=== PATIENT | female | born 1955 | race Hispanic/Latino ===

== ENCOUNTER 2021-04-17 14:57 | Inpatient (IN) | payer MEDICARE ==
[~2021-04-17] VITALS: Ht 152.4 cm; Wt 78.0 kg
[2021-04-17] MEDS ORDERED: METHYLPREDNISOLONE SOD SUCC 125 MG/2ML VIAL IV ONE (15:30)
[2021-04-17] MEDS ORDERED: ALBUTEROL/IPRATROPIUM 3 ML NEB NEB ONE (15:30)
[2021-04-17 15:55] LABS: BASOPHILS # (AUTO) 0.1 (0.0-0.1); BASOPHILS % 0.6 % (0.0-1.0); EOSINOPHILS # (AUTO) 0.2 (0.0-0.4); EOSINOPHILS % 2.4 % (0.0-6.0); HEMATOCRIT 31.1 % (34.2-44.1); HEMOGLOBIN 10.5 g/dL (12.0-16.0); LYMPHOCYTES # (AUTO) 1.4 (1.0-3.2); LYMPHOCYTES % 14.6 % (18.0-39.1); MEAN CORPUSCULAR HEMOGLOBIN 29.2 pg (28-32); MEAN CORPUSCULAR HGB CONC 33.8 g/dL (31-35); MEAN CORPUSCULAR VOLUME 86.4 fL (81-99); NEUTROPHILS # (AUTO) 7.1 (2.1-6.9); NEUTROPHILS % 71.8 % (38.7-80.0); PLATELET COUNT 348 x10e3/uL (140-360); RED CELL DISTRIBUTION WIDTH 15.4 % (11.7-14.4)
[2021-04-17 16:08] LABS: ALANINE AMINOTRANSFERASE 17 IU/L (0-55); ALBUMIN 3.5 g/dL (3.5-5.0); ALBUMIN/GLOBULIN RATIO 0.7 (0.8-2.0); ALKALINE PHOSPHATASE 82 IU/L (40-150); ANION GAP 15.8 mmol/L (8-16); BLOOD UREA NITROGEN 14 mg/dL (7-26); BUN/CREATININE RATIO 17 (6-25); CALCIUM 9.6 mg/dL (8.4-10.2); CARBON DIOXIDE 26 mmol/L (22-29); CHLORIDE 91 mmol/L (98-107); CREATINE KINASE 104 IU/L (29-168); CREATININE, SERUM 0.81 mg/dL (0.57-1.11); EST GLOMERULAR FILTRATION RATE > 60 ML/MIN (60-); GLUCOSE 106 mg/dL (74-118); POTASSIUM 3.8 mmol/L (3.5-5.1); SODIUM 129 mmol/L (136-145)
[2021-04-17] MEDS ORDERED: ASPIRIN 81 MG CHEW TAB PO ONE (17:00)
[2021-04-17 18:16] VITALS: BP 108/65
[2021-04-17 19:27] VITALS: BP 108/65
[2021-04-17] MEDS ORDERED: CLOPIDOGREL75 MG (19:56)
[2021-04-17] MEDS ORDERED: MONTELUKAST SOD10 MG (19:56)
[2021-04-17] MEDS ORDERED: ROSUVASTATIN CA20 MG (19:56)
[2021-04-17] MEDS ORDERED: ISORDIL40 MG PO (19:56)
[2021-04-17] MEDS ORDERED: ATENOLOL25 MG (19:56)
[2021-04-17] MEDS ORDERED: ASPIRIN81 MG PO (20:00)
[2021-04-17] MEDS ORDERED: NEXIUM20 MG PO (20:00)
[2021-04-17] MEDS ORDERED: TRIAMTERENE-HCTZ1 EA PO (20:00)
[2021-04-17 20:30] VITALS: BP 120/73
[2021-04-17 20:51] VITALS: BP 120/73
[2021-04-17] MEDS ORDERED: ALBUTEROL SULF 0.083% NEB SOLN 3 ML NEB NEB PRN (21:45)
[2021-04-17] MEDS: GUAIFENESIN/CODEINE 10 ML CUP PO PRN (22:18)
[2021-04-18] VITALS (9 sets, daily range): BP systolic 138–149; BP diastolic 58–81
[2021-04-18] MEDS ORDERED: ACETAMINOPHEN 325 MG TAB PO PRN (00:15)
[2021-04-18] MEDS ORDERED: AZITHROMYCIN 500MG/NS 250 ML 250 ML IV ONE (00:15)
[2021-04-18] MEDS ORDERED: ONDANSETRON HCL INJ 2MG/ML 2ML 2 MG/ML VIAL IV PRN (00:15)
[2021-04-18 00:27] LABS: CREATINE KINASE 143 IU/L (29-168)
[2021-04-18] MEDS: CEFTRIAXONE SOD 1 GM in SODIUM CHLORIDE 0.9% 50ML 50 ML IV SCH ×2 (00:46→12:27)
[2021-04-18] MEDS ORDERED: SODIUM CHLORIDE 0.9% 250ML 250 ML ONE (00:51)
[2021-04-18] MEDS: ALBUTEROL/IPRATROPIUM 3 ML NEB NEB SCH ×4 (03:50→20:00)
[2021-04-18 06:08] LABS: BASOPHILS % 0.1 % (0.0-1.0); EOSINOPHILS % 0.1 % (0.0-6.0); HEMATOCRIT 29.7 % (34.2-44.1); HEMOGLOBIN 9.8 g/dL (12.0-16.0); LYMPHOCYTES # (AUTO) 0.8 (1.0-3.2); MEAN CORPUSCULAR HEMOGLOBIN 28.5 pg (28-32); MEAN CORPUSCULAR VOLUME 86.3 fL (81-99); MONOCYTES # (AUTO) 0.3 (0.2-0.8); MONOCYTES % 3.9 % (4.4-11.3); NEUTROPHILS # (AUTO) 6.3 (2.1-6.9); NEUTROPHILS % 84.4 % (38.7-80.0); PLATELET COUNT 310 x10e3/uL (140-360); RED BLOOD COUNT 3.44 x10e6/uL (3.6-5.1); RED CELL DISTRIBUTION WIDTH 15.3 % (11.7-14.4)
[2021-04-18 06:33] LABS: ALANINE AMINOTRANSFERASE 16 IU/L (0-55); ALBUMIN 3.3 g/dL (3.5-5.0); ALBUMIN/GLOBULIN RATIO 0.7 (0.8-2.0); ALKALINE PHOSPHATASE 77 IU/L (40-150); ANION GAP 17.1 mmol/L (8-16); BLOOD UREA NITROGEN 16 mg/dL (7-26); BUN/CREATININE RATIO 21 (6-25); CALCIUM 9.2 mg/dL (8.4-10.2); CARBON DIOXIDE 25 mmol/L (22-29); CHLORIDE 90 mmol/L (98-107); CREATININE, SERUM 0.77 mg/dL (0.57-1.11); EST GLOMERULAR FILTRATION RATE > 60 ML/MIN (60-); GLUCOSE 179 mg/dL (74-118); POTASSIUM 4.1 mmol/L (3.5-5.1); SODIUM 128 mmol/L (136-145)
[2021-04-18 07:22] LABS: CREATINE KINASE MB 7.7 ng/mL (0-5.0)
[2021-04-18] MEDS: PANTOPRAZOLE SOD 40 MG TABEC PO SCH (10:41)
[2021-04-18] MEDS: ASPIRIN 81 MG CHEW TAB PO SCH (10:41)
[2021-04-18] MEDS: CLOPIDOGREL BISULFATE 75 MG TAB PO SCH (10:41)
[2021-04-18] MEDS: METHYLPREDNISOLONE SOD SUCC 40 MG/ML VIAL 1ML IV SCH ×2 (10:41→20:25)
[2021-04-18] MEDS: GUAIFENESIN/CODEINE 10 ML CUP PO PRN (10:45)
[2021-04-18] MEDS ORDERED: BENZONATATE 100 MG CAP PO PRN (14:15)
[2021-04-18 15:03] LABS: CREATINE KINASE 299 IU/L (29-168)
[2021-04-18] MEDS: BENZONATATE 100 MG CAP PO SCH ×2 (15:05→20:25)
[2021-04-18] MEDS: GUAIFENESIN 600 MG TAB PO SCH (16:40)
[2021-04-18] MEDS: MONTELUKAST SODIUM 10 MG TAB PO SCH (20:25)
[2021-04-19] VITALS (9 sets, daily range): BP systolic 111–149; BP diastolic 65–91
[2021-04-19] MEDS: CEFTRIAXONE SOD 1 GM in SODIUM CHLORIDE 0.9% 50ML 50 ML IV SCH ×3 (00:06→23:45)
[2021-04-19] MEDS: AZITHROMYCIN 500MG/NS 250 ML 250 ML IV SCH (00:49)
[2021-04-19] MEDS: ALBUTEROL/IPRATROPIUM 3 ML NEB NEB SCH ×4 (02:05→19:40)
[2021-04-19] MEDS: GUAIFENESIN/CODEINE 10 ML CUP PO PRN (02:20)
[2021-04-19 06:44] LABS: BLOOD UREA NITROGEN 15 mg/dL (7-26); BUN/CREATININE RATIO 19 (6-25); CALCIUM 9.1 mg/dL (8.4-10.2); CARBON DIOXIDE 27 mmol/L (22-29); CHLORIDE 94 mmol/L (98-107); CREATININE, SERUM 0.77 mg/dL (0.57-1.11); EST GLOMERULAR FILTRATION RATE > 60 ML/MIN (60-); GLUCOSE 162 mg/dL (74-118); SODIUM 133 mmol/L (136-145)
[2021-04-19] MEDS: BENZONATATE 100 MG CAP PO SCH ×3 (09:32→21:20)
[2021-04-19] MEDS: GUAIFENESIN 600 MG TAB PO SCH ×2 (09:32→16:39)
[2021-04-19] MEDS: CLOPIDOGREL BISULFATE 75 MG TAB PO SCH (09:32)
[2021-04-19] MEDS: POTASSIUM CHLORIDE 10MEQ EA PO SCH (09:32)
[2021-04-19] MEDS: ISOSORBIDE DINITRATE 20 MG TAB PO SCH (09:32)
[2021-04-19] MEDS: FUROSEMIDE 40 MG TAB PO SCH (09:32)
[2021-04-19] MEDS: ASPIRIN 81 MG CHEW TAB PO SCH (09:32)
[2021-04-19] MEDS: PANTOPRAZOLE SOD 40 MG TABEC PO SCH (09:32)
[2021-04-19] MEDS: METHYLPREDNISOLONE SOD SUCC 40 MG/ML VIAL 1ML IV SCH ×2 (09:32→21:20)
[2021-04-19] MEDS: MONTELUKAST SODIUM 10 MG TAB PO SCH (21:20)
[2021-04-20] VITALS (8 sets, daily range): BP systolic 125–158; BP diastolic 64–91
[2021-04-20] MEDS: GUAIFENESIN/CODEINE 10 ML CUP PO PRN (00:29)
[2021-04-20] MEDS: AZITHROMYCIN 500MG/NS 250 ML 250 ML IV SCH (00:29)
[2021-04-20] MEDS: ALBUTEROL/IPRATROPIUM 3 ML NEB NEB SCH ×4 (00:50→19:22)
[2021-04-20] MEDS: METHYLPREDNISOLONE SOD SUCC 40 MG/ML VIAL 1ML IV SCH ×2 (08:52→21:36)
[2021-04-20] MEDS: CLOPIDOGREL BISULFATE 75 MG TAB PO SCH (08:53)
[2021-04-20] MEDS: BENZONATATE 100 MG CAP PO SCH ×3 (08:53→21:37)
[2021-04-20] MEDS: ASPIRIN 81 MG CHEW TAB PO SCH (08:54)
[2021-04-20] MEDS: POTASSIUM CHLORIDE 10MEQ EA PO SCH (08:54)
[2021-04-20] MEDS: ISOSORBIDE DINITRATE 20 MG TAB PO SCH (08:54)
[2021-04-20] MEDS: PANTOPRAZOLE SOD 40 MG TABEC PO SCH (08:55)
[2021-04-20] MEDS: GUAIFENESIN 600 MG TAB PO SCH ×2 (08:55→16:38)
[2021-04-20] MEDS: FUROSEMIDE 40 MG TAB PO SCH (08:55)
[2021-04-20 10:05] LABS: BASOPHILS % 0.2 % (0.0-1.0); HEMATOCRIT 33.2 % (34.2-44.1); HEMOGLOBIN 10.9 g/dL (12.0-16.0); LYMPHOCYTES # (AUTO) 1.1 (1.0-3.2); LYMPHOCYTES % 8.8 % (18.0-39.1); MEAN CORPUSCULAR HEMOGLOBIN 28.9 pg (28-32); MEAN CORPUSCULAR HGB CONC 32.8 g/dL (31-35); MEAN CORPUSCULAR VOLUME 88.1 fL (81-99); MONOCYTES # (AUTO) 1.8 (0.2-0.8); MONOCYTES % 15.2 % (4.4-11.3); NEUTROPHILS # (AUTO) 9.1 (2.1-6.9); NEUTROPHILS % 74.6 % (38.7-80.0); PLATELET COUNT 419 x10e3/uL (140-360); RED BLOOD COUNT 3.77 x10e6/uL (3.6-5.1); RED CELL DISTRIBUTION WIDTH 15.8 % (11.7-14.4)
[2021-04-20 10:47] LABS: ANION GAP 17.5 mmol/L (8-16); BLOOD UREA NITROGEN 20 mg/dL (7-26); BUN/CREATININE RATIO 25 (6-25); CALCIUM 8.9 mg/dL (8.4-10.2); CARBON DIOXIDE 28 mmol/L (22-29); CHLORIDE 94 mmol/L (98-107); EST GLOMERULAR FILTRATION RATE > 60 ML/MIN (60-); GLUCOSE 120 mg/dL (74-118); POTASSIUM 4.5 mmol/L (3.5-5.1); SODIUM 135 mmol/L (136-145)
[2021-04-20] MEDS: BUDESONIDE/FORMOTEROL 160/4.5MCG INHALER INH SCH ×2 (11:30→19:22)
[2021-04-20] MEDS: DOXYCYCLINE HYCLATE TABLET 100 MG TAB PO SCH ×2 (12:07→21:37)
[2021-04-20] MEDS: CEFTRIAXONE SOD 1 GM in SODIUM CHLORIDE 0.9% 50ML 50 ML IV SCH (12:08)
[2021-04-20] MEDS ORDERED: ONDANSETRON HCL 4 MG ORAL DISINTEGRATING TAB PO PRN (12:15)
[2021-04-20] MEDS: MONTELUKAST SODIUM 10 MG TAB PO SCH (21:36)
[2021-04-21] VITALS (9 sets, daily range): BP systolic 146–175; BP diastolic 84–98
[2021-04-21] MEDS: GUAIFENESIN/CODEINE 10 ML CUP PO PRN (01:11)
[2021-04-21] MEDS: ALBUTEROL/IPRATROPIUM 3 ML NEB NEB SCH ×4 (01:36→19:38)
[2021-04-21] MEDS: BUDESONIDE/FORMOTEROL 160/4.5MCG INHALER INH SCH ×2 (07:00→19:38)
[2021-04-21] MEDS: ASPIRIN 81 MG CHEW TAB PO SCH (09:05)
[2021-04-21] MEDS: METHYLPREDNISOLONE SOD SUCC 40 MG/ML VIAL 1ML IV SCH ×2 (09:05→21:16)
[2021-04-21] MEDS: POTASSIUM CHLORIDE 10MEQ EA PO SCH (09:06)
[2021-04-21] MEDS: GUAIFENESIN 600 MG TAB PO SCH ×2 (09:06→16:20)
[2021-04-21] MEDS: FUROSEMIDE 40 MG TAB PO SCH (09:06)
[2021-04-21] MEDS: BENZONATATE 100 MG CAP PO SCH ×3 (09:06→21:16)
[2021-04-21] MEDS: CLOPIDOGREL BISULFATE 75 MG TAB PO SCH (09:06)
[2021-04-21] MEDS: ISOSORBIDE DINITRATE 20 MG TAB PO SCH (09:07)
[2021-04-21] MEDS: DOXYCYCLINE HYCLATE TABLET 100 MG TAB PO SCH ×2 (09:07→21:16)
[2021-04-21] MEDS: PANTOPRAZOLE SOD 40 MG TABEC PO SCH (09:07)
[2021-04-21] MEDS: CEFTRIAXONE SOD 1 GM in SODIUM CHLORIDE 0.9% 50ML 50 ML IV SCH ×3 (12:17)
[2021-04-21] MEDS: MONTELUKAST SODIUM 10 MG TAB PO SCH (21:16)
[2021-04-22 00:47] VITALS: BP 148/96
[2021-04-22] MEDS: ALBUTEROL/IPRATROPIUM 3 ML NEB NEB SCH ×4 (00:52→19:00)
[2021-04-22] MEDS: CEFTRIAXONE SOD 1 GM in SODIUM CHLORIDE 0.9% 50ML 50 ML IV SCH ×3 (01:55→23:47)
[2021-04-22] MEDS: GUAIFENESIN/CODEINE 10 ML CUP PO PRN (02:11)
[2021-04-22 04:56] VITALS: BP 160/91
[2021-04-22] MEDS: BUDESONIDE/FORMOTEROL 160/4.5MCG INHALER INH SCH ×2 (07:23→19:00)
[2021-04-22 09:00] VITALS: BP 160/91
[2021-04-22] MEDS: CLOPIDOGREL BISULFATE 75 MG TAB PO SCH (09:00)
[2021-04-22] MEDS: ASPIRIN 81 MG CHEW TAB PO SCH (09:00)
[2021-04-22] MEDS: METHYLPREDNISOLONE SOD SUCC 40 MG/ML VIAL 1ML IV SCH ×2 (09:25→21:29)
[2021-04-22] MEDS: PANTOPRAZOLE SOD 40 MG TABEC PO SCH (09:25)
[2021-04-22] MEDS: BENZONATATE 100 MG CAP PO SCH ×3 (09:26→21:29)
[2021-04-22] MEDS: GUAIFENESIN 600 MG TAB PO SCH ×2 (09:26→17:00)
[2021-04-22] MEDS: ISOSORBIDE DINITRATE 20 MG TAB PO SCH (09:26)
[2021-04-22] MEDS: FUROSEMIDE 40 MG TAB PO SCH (09:26)
[2021-04-22] MEDS: POTASSIUM CHLORIDE 10MEQ EA PO SCH (09:50)
[2021-04-22] MEDS: DOXYCYCLINE HYCLATE TABLET 100 MG TAB PO SCH ×2 (09:50→21:29)
[2021-04-22 12:39] VITALS: BP 131/79
[2021-04-22] MEDS ORDERED: PROPOFOL IV EMULSION 10 MG/ML 20 ML VIAL ONE (12:47)
[2021-04-22] MEDS ORDERED: POVIDONE IODINE 0.05% 0.05 % ML PO ONE (12:47)
[2021-04-22] MEDS ORDERED: FENTANYL CITRATE/PF 100MCG/2 ML INJ ONE (13:12)
[2021-04-22] MEDS ORDERED: MIDAZOLAM HCL 2 MG/2 ML VIAL ONE (13:12)
[2021-04-22 20:37] VITALS: BP 149/91
[2021-04-22 21:00] VITALS: BP 149/91
[2021-04-22] MEDS: MONTELUKAST SODIUM 10 MG TAB PO SCH (21:29)
[2021-04-23] VITALS (8 sets, daily range): BP systolic 133–172; BP diastolic 68–90
[2021-04-23] MEDS: ALBUTEROL/IPRATROPIUM 3 ML NEB NEB SCH ×4 (01:20→19:15)
[2021-04-23] MEDS: BUDESONIDE/FORMOTEROL 160/4.5MCG INHALER INH SCH ×2 (07:00→19:15)
[2021-04-23] MEDS: PANTOPRAZOLE SOD 40 MG TABEC PO SCH (08:53)
[2021-04-23] MEDS: ASPIRIN 81 MG CHEW TAB PO SCH (08:55)
[2021-04-23] MEDS: ISOSORBIDE DINITRATE 20 MG TAB PO SCH (08:59)
[2021-04-23] MEDS: CLOPIDOGREL BISULFATE 75 MG TAB PO SCH (09:00)
[2021-04-23] MEDS: DOXYCYCLINE HYCLATE TABLET 100 MG TAB PO SCH ×2 (09:00→20:16)
[2021-04-23] MEDS: FUROSEMIDE 40 MG TAB PO SCH (09:00)
[2021-04-23] MEDS: POTASSIUM CHLORIDE 10MEQ EA PO SCH (09:00)
[2021-04-23] MEDS: BENZONATATE 100 MG CAP PO SCH ×3 (09:00→20:16)
[2021-04-23] MEDS: GUAIFENESIN 600 MG TAB PO SCH ×2 (09:00→19:57)
[2021-04-23] MEDS: METHYLPREDNISOLONE SOD SUCC 40 MG/ML VIAL 1ML IV SCH ×2 (09:01→20:16)
[2021-04-23] MEDS: CEFTRIAXONE SOD 1 GM in SODIUM CHLORIDE 0.9% 50ML 50 ML IV SCH ×2 (13:22→23:21)
[2021-04-23] MEDS: MONTELUKAST SODIUM 10 MG TAB PO SCH (20:16)
[2021-04-24] VITALS (8 sets, daily range): BP systolic 130–165; BP diastolic 62–89
[2021-04-24] MEDS: ALBUTEROL/IPRATROPIUM 3 ML NEB NEB SCH ×4 (01:05→19:45)
[2021-04-24] MEDS: BUDESONIDE/FORMOTEROL 160/4.5MCG INHALER INH SCH ×2 (07:00→19:45)
[2021-04-24] MEDS: ISOSORBIDE DINITRATE 20 MG TAB PO SCH (10:56)
[2021-04-24] MEDS: METHYLPREDNISOLONE SOD SUCC 40 MG/ML VIAL 1ML IV SCH ×2 (10:56→20:46)
[2021-04-24] MEDS: ASPIRIN 81 MG CHEW TAB PO SCH (10:56)
[2021-04-24] MEDS: POTASSIUM CHLORIDE 10MEQ EA PO SCH (10:56)
[2021-04-24] MEDS: PANTOPRAZOLE SOD 40 MG TABEC PO SCH (10:56)
[2021-04-24] MEDS: FUROSEMIDE 40 MG TAB PO SCH (10:57)
[2021-04-24] MEDS: CEFTRIAXONE SOD 1 GM in SODIUM CHLORIDE 0.9% 50ML 50 ML IV SCH ×3 (10:57→23:07)
[2021-04-24] MEDS: CLOPIDOGREL BISULFATE 75 MG TAB PO SCH (10:57)
[2021-04-24] MEDS: BENZONATATE 100 MG CAP PO SCH ×3 (10:57→20:46)
[2021-04-24] MEDS: GUAIFENESIN 600 MG TAB PO SCH ×2 (10:57→18:10)
[2021-04-24] MEDS: DOXYCYCLINE HYCLATE TABLET 100 MG TAB PO SCH ×2 (10:57→20:46)
[2021-04-24] MEDS: ACETYLCYSTEINE 200 MG/ML 4ML VIAL INH SCH ×2 (14:04→19:45)
[2021-04-24] MEDS: MONTELUKAST SODIUM 10 MG TAB PO SCH (20:46)
[2021-04-25] VITALS: BP 140/79
[2021-04-25] MEDS: ALBUTEROL/IPRATROPIUM 3 ML NEB NEB SCH ×2 (03:15→07:35)
[2021-04-25] MEDS: ACETYLCYSTEINE 200 MG/ML 4ML VIAL INH SCH ×2 (03:15→07:35)
[2021-04-25 04:00] VITALS: BP 151/72
[2021-04-25] MEDS: BUDESONIDE/FORMOTEROL 160/4.5MCG INHALER INH SCH (07:35)
[2021-04-25 08:04] VITALS: BP 128/76
[2021-04-25] MEDS: PANTOPRAZOLE SOD 40 MG TABEC PO SCH (08:46)
[2021-04-25] MEDS: METHYLPREDNISOLONE SOD SUCC 40 MG/ML VIAL 1ML IV SCH (08:46)
[2021-04-25] MEDS: ASPIRIN 81 MG CHEW TAB PO SCH (08:46)
[2021-04-25] MEDS: ISOSORBIDE DINITRATE 20 MG TAB PO SCH (08:47)
[2021-04-25] MEDS: POTASSIUM CHLORIDE 10MEQ EA PO SCH (08:47)
[2021-04-25] MEDS: GUAIFENESIN 600 MG TAB PO SCH (08:48)
[2021-04-25] MEDS: FUROSEMIDE 40 MG TAB PO SCH (08:48)
[2021-04-25] MEDS: CLOPIDOGREL BISULFATE 75 MG TAB PO SCH (08:48)
[2021-04-25] MEDS: BENZONATATE 100 MG CAP PO SCH (08:48)
[2021-04-25] MEDS: DOXYCYCLINE HYCLATE TABLET 100 MG TAB PO SCH (08:48)
[2021-04-25 10:29] VITALS: BP 128/76
[2021-04-25 12:48] VITALS: BP 133/87
== END 2021-04-25 13:52 | disposition home or self-care (01) | DRG 197 ==
LOC: ER 15:30 → ERHOLD 17:32 → MED/SURG2 17:39 → OBSVTOIN 04-18 00:40
PROVIDERS: ADMIT Internal Medicine; ATTEND Internal Medicine
PROC: 0DB68ZX Excision of Stomach, Via Natural or Artificial Opening Endoscopic, Diagnostic (ICD-10-PCS; 2021-04-22)
PROC: 0DB98ZX Excision of Duodenum, Via Natural or Artificial Opening Endoscopic, Diagnostic (ICD-10-PCS; 2021-04-22)
PROC: 0D758ZZ Dilation of Esophagus, Via Natural or Artificial Opening Endoscopic (ICD-10-PCS; principal; 2021-04-22 17:30)
DX: M05.10 Rheumatoid lung disease with rheumatoid arthritis of unspecified site (principal); E87.1 Hypo-osmolality and hyponatremia; J84.113 Idiopathic non-specific interstitial pneumonitis; J84.178 Other interstitial pulmonary diseases with fibrosis in diseases classified elsewhere; J44.9 Chronic obstructive pulmonary disease, unspecified; M06.9 Rheumatoid arthritis, unspecified; I25.10 Atherosclerotic heart disease of native coronary artery without angina pectoris; E66.01 Morbid (severe) obesity due to excess calories; K21.9 Gastro-esophageal reflux disease without esophagitis; Z20.822 Contact with and (suspected) exposure to COVID-19; R09.02 Hypoxemia; M19.90 Unspecified osteoarthritis, unspecified site; D63.8 Anemia in other chronic diseases classified elsewhere; Z90.49 Acquired absence of other specified parts of digestive tract; Z79.82 Long term (current) use of aspirin; Z88.8 Allergy status to other drugs, medicaments and biological substances; Z68.33 Body mass index [BMI] 33.0-33.9, adult; K20.90 Esophagitis, unspecified without bleeding; K29.70 Gastritis, unspecified, without bleeding; K44.9 Diaphragmatic hernia without obstruction or gangrene
CPT/HCPCS: 36415; 43450; 71045; 71250; 80048; 80053; 82550; 82553; 83880; 84443; 84484; 85025; 88305; 88312; 93306; 94640; 99284; G0378; J0456; J0696; J2250; J2920; J2930; J3010; J7050; U0002

== ENCOUNTER 2021-07-29 21:33 | Inpatient (IN) | payer MEDICARE, OTHER ==
[~2021-07-29] VITALS: Ht 152.4 cm; Wt 78.0 kg
[~2021-07-29 21:33] MED LIST: ASPIRIN81 MG PO; ATENOLOL25 MG PO; CLOPIDOGREL75 MG PO; ISORDIL40 MG PO; MONTELUKAST SOD10 MG PO; NEXIUM20 MG PO; ROSUVASTATIN CA20 MG PO; TRIAMTERENE-HCTZ1 EA PO
[2021-07-29 21:53] LABS: BASOPHILS % 0.4 % (0.0-1.0); EOSINOPHILS % 0.2 % (0.0-6.0); HEMOGLOBIN 10.6 g/dL (12.0-16.0); LYMPHOCYTES # (AUTO) 0.7 (1.0-3.2); LYMPHOCYTES % 6.1 % (18.0-39.1); MEAN CORPUSCULAR HEMOGLOBIN 28.7 pg (28-32); MEAN CORPUSCULAR HGB CONC 33.1 g/dL (31-35); MEAN CORPUSCULAR VOLUME 86.7 fL (81-99); MONOCYTES # (AUTO) 0.7 (0.2-0.8); MONOCYTES % 6.5 % (4.4-11.3); NEUTROPHILS # (AUTO) 9.8 (2.1-6.9); NEUTROPHILS % 85.9 % (38.7-80.0); PLATELET COUNT 360 x10e3/uL (140-360); RED BLOOD COUNT 3.69 x10e6/uL (3.6-5.1); RED CELL DISTRIBUTION WIDTH 15.7 % (11.7-14.4)
[2021-07-29] MEDS ORDERED: ASPIRIN 81 MG CHEW TAB PO ONE (22:00)
[2021-07-29 22:10] LABS: ALBUMIN/GLOBULIN RATIO 0.7 (0.8-2.0); ANION GAP 18.3 mmol/L (8-16); CALCIUM 9.4 mg/dL (8.4-10.2); CREATININE, SERUM 0.98 mg/dL (0.57-1.11); POTASSIUM 4.3 mmol/L (3.5-5.1)
[2021-07-29 22:16] LABS: CREATINE KINASE MB 2.5 ng/mL (0-5.0)
[2021-07-30] MEDS ORDERED: AUGMENTIN 875-1 EACH PO (00:32)
[2021-07-30] MEDS ORDERED: DOXYCYCLINE HY100 MG PO (00:32)
[2021-07-30] MEDS ORDERED: IOPAMIDOL 370 MG/ML 200 ML INFUS..BTL INJ ONE (01:05)
[2021-07-30] MEDS ORDERED: SODIUM CHLORIDE 0.9% 50ML 50 ML ONE (01:05)
[2021-07-30] MEDS ORDERED: DOCUSATE SODIUM 100 MG CAP PO PRN (01:30)
[2021-07-30] MEDS ORDERED: ALBUTEROL/IPRATROPIUM 3 ML NEB NEB PRN (01:30)
[2021-07-30] MEDS ORDERED: ACETAMINOPHEN 325 MG TAB PO PRN (01:30)
[2021-07-30] MEDS ORDERED: SIMETHICONE 80 MG CHEW PO PRN (01:30)
[2021-07-30] MEDS ORDERED: DIPHENHYDRAMINE HCL 25 MG CAP PO PRN (01:30)
[2021-07-30] MEDS ORDERED: HYDRALAZINE HCL 20 MG/ML VIAL IV PRN (01:30)
[2021-07-30] MEDS ORDERED: BENZONATATE 100 MG CAP PO PRN (01:30)
[2021-07-30] MEDS ORDERED: TRAMADOL HCL 50 MG TAB PO PRN (01:30)
[2021-07-30] MEDS ORDERED: DEXTROSE 50% SYRINGE 50 ML IV PRN (01:30)
[2021-07-30] MEDS ORDERED: ONDANSETRON HCL INJ 2MG/ML 2ML 2 MG/ML VIAL IV PRN (01:30)
[2021-07-30] MEDS ORDERED: LIDOCAINE 4% PATCH TP PRN (01:30)
[2021-07-30] MEDS ORDERED: MELATONIN 5 MG TABLET PO PRN (01:30)
[2021-07-30] MEDS ORDERED: POTASSIUM CHLORIDE 20 MEQ TAB CR PO PRN (01:30)
[2021-07-30 01:32] LABS: CREATINE KINASE MB 2.8 ng/mL (0-5.0)
[2021-07-30] MEDS ORDERED: PANTOPRAZOLE SOD 40 MG TABEC PO SCH (07:30)
[2021-07-30 08:31] LABS: BASOPHILS % 0.1 % (0.0-1.0); EOSINOPHILS # (AUTO) 0.1 (0.0-0.4); EOSINOPHILS % 0.7 % (0.0-6.0); HEMATOCRIT 31.8 % (34.2-44.1); HEMOGLOBIN 10.4 g/dL (12.0-16.0); LYMPHOCYTES % 11.3 % (18.0-39.1); MEAN CORPUSCULAR HEMOGLOBIN 28.7 pg (28-32); MEAN CORPUSCULAR HGB CONC 32.7 g/dL (31-35); MEAN CORPUSCULAR VOLUME 87.6 fL (81-99); MONOCYTES # (AUTO) 0.8 (0.2-0.8); MONOCYTES % 9.2 % (4.4-11.3); NEUTROPHILS # (AUTO) 6.6 (2.1-6.9); NEUTROPHILS % 77.8 % (38.7-80.0); PLATELET COUNT 310 x10e3/uL (140-360); RED BLOOD COUNT 3.63 x10e6/uL (3.6-5.1); RED CELL DISTRIBUTION WIDTH 15.8 % (11.7-14.4)
[2021-07-30] MEDS ORDERED: CEFTRIAXONE 1 GM VIAL ONE (08:52)
[2021-07-30] MEDS ORDERED: CEFTRIAXONE 1 GM in SODIUM CHLORIDE 0.9% 50ML 50 ML IV SCH (09:00)
[2021-07-30 09:01] LABS: CREATINE KINASE MB 3.9 ng/mL (0-5.0)
[2021-07-30 09:36] LABS: ALBUMIN 2.9 g/dL (3.5-5.0); ALBUMIN/GLOBULIN RATIO 0.7 (0.8-2.0); ANION GAP 14.7 mmol/L (8-16); CALCIUM 9.7 mg/dL (8.4-10.2); CREATININE, SERUM 0.79 mg/dL (0.57-1.11); MAGNESIUM 1.7 MG/DL (1.3-2.1); POTASSIUM 4.7 mmol/L (3.5-5.1)
[2021-07-30] MEDS ORDERED: GABAPENTIN100 MG PO (12:07)
[2021-07-30] MEDS ORDERED: XELJANZ XR11 MG PO (12:07)
[2021-07-30] MEDS ORDERED: TRELEGY ELLIPT1 EACH INH (12:07)
[2021-07-30] MEDS ORDERED: ISOSORBIDE MONO60 MG PO (12:07)
[2021-07-30] MEDS ORDERED: ENOXAPARIN SOD INJ 40 MG/0.4 ML SYR SC SCH (17:00)
== END 2021-07-30 14:18 | disposition left against medical advice (07) | DRG 196 ==
LOC: ER 22:45 → ERHOLD 07-30 00:56
PROVIDERS: ADMIT Internal Medicine; ATTEND Internal Medicine
DX: J84.9 Interstitial pulmonary disease, unspecified (principal); J80 Acute respiratory distress syndrome; E66.01 Morbid (severe) obesity due to excess calories; Z68.33 Body mass index [BMI] 33.0-33.9, adult; I51.7 Cardiomegaly; M06.9 Rheumatoid arthritis, unspecified; Z20.822 Contact with and (suspected) exposure to COVID-19; Z99.81 Dependence on supplemental oxygen
CPT/HCPCS: 36415; 71045; 71260; 80053; 82550; 82553; 83605; 83735; 83880; 84484; 85025; 87040; 93005; 94640; 99285; J0456; J0696; J7050; Q9967; U0002